=== PATIENT | female | born 1970 | race Caucasian/White ===

== ENCOUNTER → 2021-10-07 | Outpatient (CLI) | payer BC | LOC: COL.RAD 10:05 | DX: R76.8 Other specified abnormal immunological findings in serum (principal); R74.8 Abnormal levels of other serum enzymes; R10.11 Right upper quadrant pain; R76.0 Raised antibody titer; L29.9 Pruritus, unspecified; H02.63 Xanthelasma of right eye, unspecified eyelid; H02.66 Xanthelasma of left eye, unspecified eyelid; L40.9 Psoriasis, unspecified; I73.00 Raynaud's syndrome without gangrene; M06.9 Rheumatoid arthritis, unspecified ==

== ENCOUNTER 2022-02-07 16:27 | Emergency (ER) | payer BC ==
[~2022-02-07] VITALS: Ht 172.7 cm; Wt 75.0 kg
[2022-02-07 17:11] VITALS: BP 122/61; PULSE 71; TEMP 97.2
== END 2022-02-07 18:20 | disposition home or self-care (01) ==
LOC: COL.ER 16:27
DX: S80.11XA Contusion of right lower leg, initial encounter (principal); S20.212A Contusion of left front wall of thorax, initial encounter; Z28.310 Unvaccinated for COVID-19; V86.96XA Unspecified occupant of dirt bike or motor/cross bike injured in nontraffic accident, initial encounter